=== PATIENT | female | born 1960 | race African-American/Black ===

== ENCOUNTER 2025-07-09 13:39 | Outpatient (AMB) | payer MEDICARE, MEDICAID, SELFPAY ==
[2025-07-09 13:41] VITALS: PULSE 74; TEMP 36.6; BMI 52.5
--- NOTE | 2025-07-09 13:41 | A.PHYSOV ---
Vital Signs 07/09/25 13:41 Height 5 ft 1 in Weight 278 lb BMI 52.5 Pulse 74 Temp 97.8 F Intake Visit Reasons: Lumbar Interlaminar Epidural Injection L5-S1 Intake Note: Patient is a 64 year old female in office today for a L5-s1 epidural steroid injections Interactive Media Specialist Required: No Allergies No Known Allergies Allergy (Verified 07/09/25 13:43) PFSH Medical History Lumbar radiculitis Surgical History H/O tubal ligation (Unknown) History of cholecystectomy (Unknown) History of Social History Household Members: Family and Children Alcohol intake: current Alcohol intake frequency: holidays/special occasions only Patient Tobacco Use Status: Former Tobacco user Use of substances other than those prescribed or required for medical reasons: No Current occupational status: retired Physical Exam Vital Signs: Last Vital Signs Temp 97.8 F 07/09/25 13:41 Pulse 74 07/09/25 13:41 BMI result Body Mass Index 52.5 Office Procedures Procedure Details: Procedure performed: L5-S1 lumbar epidural steroid injection Preop diagnosis: Lumbar radiculitis Postop diagnosis: The same Anesthesia: Local After informed consent was obtained patient was brought into the procedure room and placed in the prone position on the procedure table. Skin over the lumbar sacral area was prepped and draped in usual sterile manner. L5-S1 interlaminar space was visualized utilizing fluoroscopy. After skin was anesthetized with 1% lidocaine solution, 6 in 20 gauge Toughy needle was introduced percutaneously and advanced toward the epidural space at the indicated level. Loss of resistance technique was utilized. Needle placement was verified utilizing 3 cc of Omnipaque contrast solution. Excellent epidural spread was visualized without evidence of vascular uptake. Total volume of 8 cc containing 2 cc of 1% lidocaine, 40 mg of triamcinolone and normal saline solution were injected after negative aspiration for blood and cerebrospinal fluid. Radiation exposure was documented in the chart. Lumbar Interlaminar Epidural 62544- use with FL Gd order: Lumbar Interlaminar Epidural Steroid Injection 90260 Procedure code (CPT) selection complete Office Meds Kenalog 40 mg/mL suspension for injection Performing Provider: Stanley Chu DO Performing [facility] Administered by: Stanley Chu DO on 07/09/25 13:59 Dose Route Admin Location Dispensed Lot Number Expiration Date [facility] Benefit Director 40 mg epidural 1 mL [address]-9 [employer] Total Dispensed Waste 1 mL 0 % lidocaine (PF) 10 mg/mL (1 %) injection solution Performing Provider: Stanley Chu DO Performing Location: [facility] Administered by: Stanley Chu DO on 07/09/25 13:59 Dose Route Admin Location Dispensed Lot Number Expiration Date [facility] Benefit Director 50 mg epidural 5 mL 64991-831-23 [facility] PH[facility] Total Dispensed Waste 5 mL 0 % Omnipaque 300 300 mg iodine/mL intravenous solution Performing Provider: Stanley Chu DO [facility] Administered by: Stanley Chu DO on 07/09/25 13:59 Dose Route Admin Location Dispensed Lot Number Expiration Date [facility] Benefit Director 3 mL epidural 10 mL [id number] [employer] Total Dispensed Waste 10 mL 70 % Assessment & Plan Assessment & Plan (1) Lumbar radiculitis: Code(s): M54.16 - Radiculopathy, lumbar region Category: Medical Plan: Procedure Plan Procedure Orders: Orders FL Gd L Spine Interlaminar Inj Today M54.16 - Radiculopathy, lumbar region AMB Lumbar Interlaminar Epidural Steroid Injection Today M54.16 - Radiculopathy, lumbar region Coding Level of Care Code Procedure Only Diagnoses Lumbar radiculitis M54.16 CPT Codes Lumbar Interlaminar Epidural Steroid I - 08248 - Lumbar Interlaminar Epidural: Lumbar Interlaminar Epidural Steroid Injection 74964 ([id number])
--- OUTSIDE RECORDS SUMMARY | 2025-07-09 17:53 | XMS_ITS | Clinical Summary ---
Author Organization [facility] Address [address] [place] [address] Phone Care Team Providers Care Systems Lead Name Role Phone Kirti García MD Primary Care Provider [phone] Allergies No known active allergies Medications oxymetazoline (AFRIN) 0.05 % nasal spray Administer 2 sprays into each nostril 2 (two) times a day for 3 days. 30 mL 5 Active gabapentin (NEURONTIN) 100 mg capsule Take 2 capsules (200 mg total) by mouth 3 (three) times a day. 4 Active ProAir HFA 90 mcg/actuation inhaler Inhale 2 puffs by mouth every 6 (six) hours if needed for shortness of breath. 9 Active omeprazole (PriLOSEC) [address] capsule Take 1 capsule (20 mg total) by mouth 1 (one) time each day. 5 Active fluticasone HFA (FLOVENT HFA) 110 mcg/actuation inhaler Inhale 2 puffs by mouth 2 (two) times a day. 4 Active Arnuity Ellipta 100 mcg/actuation blister with device inhaler Inhale 1 puff by mouth 1 (one) time each day. 5 Active levothyroxine (SYNTHROID, LEVOTHROID) 200 mcg tablet TAKE 1 TABLET BY MOUTH EVERY MORNING ON AN EMPTY STOMACH ONCE A DAY 5 Active traMADoL (ULTRAM) 50 mg tablet TAKE 1 TABLET BY MOUTH 4 TIMES A DAY FOR 7 DAYS 4 Active albuterol 2.5 mg /3 mL (0.083 %) nebulizer solution Take 3 mL (2.5 mg total) by nebulization every 6 (six) hours if needed for wheezing. 75 mL 5 Active polyethylene glycol (Golytely) 236-22.74-6.74 -5.86 gram solution Take 4L by mouth once for one dose. May substitue any PEG. Starting at 2PM the day before your procedure drink 1 8oz glasses at your own pace until you complete half of the gallon. Finish 2nd half of the gallon at 8PM. 4000 mL 5 Active bisacodyL (DULCOLAX) 5 mg EC tablet Take 2 tablets by mouth right before beginning bowel prep. See instructions provided by the office 2 tablet 5 Active phentermine 15 mg capsule 1 capsule (15 mg total) 1 (one) time each day at the same time. Max Daily Amount: 15 mg 5 Active guaiFENesin (MUCINEX) 600 mg 12 hr tablet Take 1 tablet (600 mg total) by mouth 2 (two) times a day. Do not crush, chew, or split. 60 each 11 5 05/25/20 26 Active Active Problems No known active problems Encounters Date Type Department Care Team Description 05/25/2025 4:40 PM EDT - 05/25/2025 11:[address] [facility] Emergency [address] [place] [phone] Manish Rubi MD Zaidi, Mansoor Anwer, MD COPD exacerbation (CMS/[facility] V24, CMS/[facility] V28) (Primary Dx); Shortness of breath Discharge Disposition: Home or Self Care 04/27/2025 2:51 PM EDT - 04/27/2025 4:[address] [facility] Emergency [address] [place] [phone] Anthony Henry MD COVID-19 (Primary Dx); Chest pain, unspecified type; Shortness of breath Discharge Disposition: Home or Self Care 04/21/2025 12:15 PM EDT Anesthesia Event [facility] Endoscopy [address] [place] [phone] Nabeel Rocha MD Mounsey, Sarah, CRNA 04/21/2025 11:54 AM EDT - 04/21/2025 11:59 PM EDT Hospital Encounter [facility] Endoscopy [address] [place] [phone] Lawrence Snowden MD Saliga, Jesse L, MD Mounsey, Sarah, CRNA Colon cancer screening Discharge Disposition: Home or Self Care from Last 3 Months Surgical History Surgery Date Site/Laterality Comments COLONOSCOPY Medical History Medical History Date Comments Asthma COPD (chronic obstructive pulmonary disease) (CM S/HCC V24, CMS/HCC V28) Hypothyroid Social History Tobacco Use Types Packs/Day Years Used Date Smoking Tobacco: Former Cigarettes Smokeless Tobacco: Never Tobacco Cessation:Counseling Given: Not Answered Interpersonal Safety Answer Date Record ed Physical Abuse Unrecognized value 04/21/2025 Verbal Abuse Unrecognized value 04/21/2025 Comments No Sex and Gender Information Value Date Recorded Sex Assigned at Female 02/01/2025 11:57 AM EDT Legal Sex Female 11:38 PM EST Gender Identity Female 02/01/2025 11:57 AM EDT Sexual Orientation Straight 02/01/2025 11 :57 AM EDT Obstetrics History Para Term AB IAB SAB Ectopic Multiple Livin g Live Births 3 Last Filed Vital Signs Vital Sign Reading Time Taken Comments Blood Pressure 114/56 05/25/2025 10:51 PM EDT Pulse 60 05/25/2025 10:51 PM EDT Temperature 36.7 C (98.1 F) 05/25/2025 10:51 PM EDT Respiratory Rate 18 05/25/2025 10:51 PM EDT Oxygen Saturation 100% 05/25/2025 10:51 PM EDT Inhaled Oxygen Concentration - - Weight 127 kg (280 lb) 05/25/2025 12:58 PM EDT Height 154.9 cm (5' 1 ) 05/25/2025 12:58 PM EDT Body Mass Index 52.91 05/25/2025 12:58 PM EDT Plan of Treatment Upcoming Encounters Date Type Department Care Team (Late st Contact Info) Description 09/17/2025 10:[address] [facility] Bone Density [address] [place] [phone] 03/04/2026 10:00 AM EDT Appointment [facility] [address] [place] [phone] Health Maintenance Due Date Last Done Comments DTaP,Tdap,and Td Vaccines (1 - Tdap) 11/18/1979 Cervical Cancer Screening: Pap Smear 1981 RSV Immunization Adult Patients (1 - Risk 50-74 years 1-dose series) 2010 Zoster Vaccines (1 of 2) 2010 Pneumococcal Vaccine: 50+ Years (2 of 2 - PPSV23, PCV20, or PCV21) 03/13/2022 01/16/2022 Cholesterol Screening (Lipid Panel) 07/08/2022 HIV Screening 07/08/2022 Hepatitis C Screening 07/08/2022 Medicare Annual Wellness Visit 07/08/2022 Social Influencers of Health Screening 07/08/2022 Depression Screening 08/05/2024 COVID-19 Vaccine ( season) 2025 12/14/2020, 11/16/2020 Influenza Vaccine (#1) 2025 Breast Cancer Screening 03/03/2027 03/03/20 25, 02/24/2024, 01/29/2023, Additional history exists Colorectal Cancer Screening: Colonoscopy 04/21/2035 04/21/2025 HIB Vaccines Aged Out No longer eligi ble based on patient's age to complete this topic HPV Vaccines Aged Out No longer eligi ble based on patient's age to complete this topic Hepatitis A Vaccines Aged Out No long er eligible based on patient's age to complete this topic Hepatitis B Vaccines Aged Out No long er eligible based on patient's age to complete this topic IPV Vaccines Aged Out No longer eligi ble based on patient's age to complete this topic MMR Vaccines Aged Out No longer eligi ble based on patient's age to complete this topic Meningococcal ACWY Vaccine Aged Out N o longer eligible based on patient's age to complete this topic Meningococcal B Vaccine Aged Out No l onger eligible based on patient's age to complete this topic RSV Immunization Patients Under 20 months Aged Out No longer eligible based on patient's age to complete this topic Varicella Vaccines Aged Out No longer eligible based on patient's age to complete this topic Procedures Procedure Name Priority Date/Time Associated Diagnosis Comments ECG ANNOTATED 05/26/2025 CT ANGIO CHEST WO AND/OR W CONTRAST STAT 05/25/2025 8:48 PM EDT Shortness of breath VENOUS BLOOD GAS STAT 05/25/2025 7:58 PM EDT XR CHEST 2 VIEWS STAT 05/25/2025 6:51 PM EDT TROPONIN I HIGH SENSITIVITY Timed 05/25/2025 6:40 PM EDT D-DIMER STAT Add-on 05/25/2025 1:49 PM EDT ACTIVATED PARTIAL THROMBOPLASTIN TIME STAT 05/25/2025 1:49 PM EDT PROTHROMBIN TIME WITH INR STAT 05/25/2025 1:49 PM EDT CBC WITH AUTO DIFFERENTIAL STAT 05/25/2025 1:49 PM EDT B-TYPE NATRIURETIC PEPTIDE STAT 05/25/2025 1:49 PM EDT MAGNESIUM STAT 05/25/2025 1:49 PM EDT LIPASE STAT 05/25/2025 1:49 PM EDT COMPREHENSIVE METABOLIC PANEL STAT 05/25/2025 1:49 PM EDT CBC AND DIFFERENTIAL STAT 05/25/2025 1:49 PM EDT TROPONIN I HIGH SENSITIVITY Timed 05/25/2025 1:49 PM EDT ECG ANNOTATED 04/28/2025 XR CHEST 2 VIEWS STAT 04/27/2025 1:39 PM EDT [id number]-[id number], RSV, FLU A AND B QUALITATIVE RT-PCR, INTERNAL LAB STAT 04/27/2025 1:06 PM EDT ECG 12-LEAD STAT 04/27/2025 1:04 PM EDT COLONOSCOPY Routine 04/21/2025 12:30 PM EDT Colon cancer screening MG MAMMO DIGITAL SCREENING W GINO BILAT Routine 03/03/2025 9:44 AM EDT Encounter for screening mammogram for malignant neoplasm of breast from Last 3 Months or Most Recently Relevant to Health Maintenance Results * ECG-Annotated (05/26/2025) Only the most recent of2 resultswithin the time period is included. us Provider Onbase MD ECG ORDERABLES Final Result * CT Angio Chest wo and/or w Contrast (05/25/2025 8:48 PM EDT) Anatomical Region Laterality Modality Body Computed Tomogra phy 05/25/2025 9:34 PM EDT Impressions 05/25/2025 9:34 PM EDT 1. No pulmonary embolus. No acute intrathoracic findings. This document has been electronically signed by: Tal Gorman MD on 05/25/2025 21:34:01 Narrative 05/25/2025 9:34 PM EDT INDICATION: concern PE CT angiography chest with contrast. 3D Postprocessing. Comparison: None provided Findings: The heart size is normal. RV/LV ratio is normal. Unremarkable thoracic aorta and great vessels. No aneurysm. No pulmonary artery filling defects. The visualized thyroid and mediastinum are unremarkable. No consolidation or effusion. Prior cholecystectomy. The bones are intact. Procedure Note Tal Gorman - 05/25/2025 INDICATION: concern PE CT angiography chest with contrast. 3D Postprocessing. Comparison: None provided Findings: The heart size is normal. RV/LV ratio is normal. Unremarkable thoracic aorta and great vessels. No aneurysm. No pulmonary artery filling defects. The visualized thyroid and mediastinum are unremarkable. No consolidation or effusion. Prior cholecystectomy. The bones are intact. IMPRESSION: 1. No pulmonary embolus. No acute intrathoracic findings. This document has been electronically signed by: Tal Gorman MD on 05/25/2025 21:34:01 us Manish Rubi MD IMG CT PROCEDURES Final Result * (ABNORMAL) Venous blood gas (05/25/2025 7:58 PM EDT) pH, Ward 7.31(L) 7.32 - 7.42 pH 05/25/2025 8:06 PM EDT [facility] pCO2, Ward 56(H) 41 - 51 mmHg 05/25/2025 8:06 PM EDT [facility] pO2, Ward 25 25 - 40 mmHg 05/25/2025 8:06 PM EDT [facility] HCO3, Venous 24.1 22.0 - 26.0 mmol/L 05/25/2025 8:06 PM EDT [facility] O2 Sat, Ward 35.0 % 05/25/2025 8:06 PM EDT [facility] Base Excess, Ward 0.9 -2.0 - 2.0 mmol/L 05/25/2025 8:06 PM EDT [facility] Blood Venous blood specimen / Unknown Venipuncture / Unknown 05/25/2025 7:58 PM EDT 05/25/2025 8:03 PM EDT us Manish Rubi MD LAB BLOOD ORDERABLES Final Resul t [facility] [address] [place] [address], [place] [phone] * XR Chest 2 Views (05/25/2025 6:51 PM EDT) Only the most recent of2 resultswithin the time period is included. Anatomical Region Laterality Modality Body Radiographic Thuy ging 05/26/2025 10:0 0 AM EDT Impressions 05/26/2025 10:00 AM EDT FINDINGS/IMPRESSION: Lungs are clear. No pleural effusion or pneumothorax. Cardiac silhouette is normal in size. Degenerative changes seen throughout the bones. Cholecystectomy clips. -------- FINAL REPORT -------- Dictated By: JEET AUGUST Dictated Date: 05/26/2025 10:00 ET Assigned Physician: JEET AUGUST Reviewed and Electronically Signed By: JEET AUGUST Signed Date: 05/26/2025 10:00 ET Workstation ID: [id number] Transcribed By: Self Edit Transcribed Date: 05/26/2025 10:00 ET Narrative 05/26/2025 10:00 AM EDT XR CHEST 2 VIEWS INDICATION: Chest pain TECHNIQUE: XR CHEST 2 VIEWS COMPARISON: 04/27/2025 Procedure Note Jeet August MD - 05/26/2025 XR CHEST 2 VIEWS INDICATION: Chest pain TECHNIQUE: XR CHEST 2 VIEWS COMPARISON: 04/27/2025 IMPRESSION: FINDINGS/IMPRESSION: Lungs are clear. No pleural effusion orpneumothorax. Cardiac silhouette is normal in size. Degenerative changesseen throughout the bones. Cholecystectomy clips. -------- FINAL REPORT -------- Dictated By: JEET AUGUST Dictated Date: 05/26/2025 10:00 ET Assigned Physician: JEET AUGUST Reviewed and Electronically Signed By: JEET AUGUST Signed Date: 05/26/2025 10:00 ET Workstation ID: [id number] Transcribed By: Self Edit Transcribed Date: 05/26/2025 10:00 ET Manish Rubi MD IMG XR PROCEDURES Final Result * Troponin I high sensitivity (05/25/2025 6:40 PM EDT) Only the most recent of2 resultswithin the time period is included. High Sensitivity Troponin I 6 <=54 ng/L LAB CHEMISTRY METHOD 05/25/2025 7:22 PM EDT [facility] Blood Venous blood specimen / Unknown Venipuncture / Unknown 05/25/2025 6:40 PM EDT 05/25/2025 6:43 PM EDT Narrative [facility] - 05/25/2025 7:22 PM EDT High levels of biotin in samples may falsely decrease hsTroponin values. Use caution when interpreting hsTroponin results in patients taking biotin who exhibit renal impairment (eGFR <60) or in patients taking more than 20 mg/day of biotin. us Manish Rubi MD LAB BLOOD ORDERABLES Final Resul t [facility] [address] [place] [address], * (ABNORMAL) CBC auto differential (05/25/2025 1:49 PM EDT) WBC 4.7(L) 4.8 - 10.8 K/mcL LAB HEMETOLOGY METHOD 05/25/2025 2:02 PM EDT [facility] RBC 4.00 3.80 - 4.80 M/mcL LAB HEMETOLOGY METHOD 05/25/2025 2:02 PM EDT [facility] Hemoglobin 10.6(L) 11.5 - 16.0 g/dL LAB HEMETOLOGY METHOD 05/25/2025 2:[facility] Hematocrit 33.0(L) 35.0 - 47.0 % LAB HEMETOLOGY METHOD 05/25/2025 2:02 PM EDT [facility] MCV 83.1 79.0 - 98.0 FL LAB HEMETOLOGY METHOD 05/25/2025 2:02 PM [facility] MCH 26.7(L) 27.0 - 32.0 pcg LAB HEMETOLOGY METHOD 05/25/2025 2:02 PM [facility] MCHC 32.1 32.0 - 37.0 g/dL LAB HEMETOLOGY METHOD 05/25/2025 2:02 PM [facility] RDW 15.3(H) 11.0 - 15.0 % LAB HEMETOLOGY METHOD 05/25/2025 2:02 PM [facility] Platelets 278 130 - 400 K/mcL LAB HEMETOLOGY METHOD 05/25/2025 2:02 PM [facility] MPV 9.3 7.0 - 11.0 FL LAB HEMETOLOGY METHOD 05/25/2025 2:02 PM [facility] NRBC 0.0 <1.0 % LAB HEMETOLOGY METHOD 05/25/2025 2:02 PM [facility] NRBC Absolute 0.00 <0.10 K/mcL LAB HEMETOLOGY METHOD 05/25/2025 2:02 PM [facility] Neutrophils Relative 54.5 % LAB HEMETOLOGY METHOD 05/25/2025 2:02 PM [facility] Lymphocytes Relative 32.3 % LAB HEMETOLOGY METHOD 05/25/2025 2:02 PM [facility] Monocytes Relative 8.1 % LAB HEMETOLOGY METHOD 05/25/2025 2:02 PM [facility] Eosinophils Relative 4.5 % LAB HEMETOLOGY METHOD 05/25/2025 2:02 PM [facility] Basophils Relative 0.4 % LAB HEMETOLOGY METHOD 05/25/2025 2:02 PM [facility] Immature Granulocytes Relative 0.2 % LAB HEMETOLOGY METHOD 05/25/2025 2:02 PM [facility] Neutrophils Absolute 2.57 1.50 - 7.00 K/mcL LAB HEMETOLOGY METHOD 05/25/2025 2:02 PM [facility] Lymphocytes Absolute 1.52 1.00 - 5.00 K/mcL LAB HEMETOLOGY METHOD 05/25/2025 2:02 PM EDT [facility] Monocytes Absolute 0.38 0.20 - 1.00 K/[facility] LAB HEMETOLOGY METHOD 05/25/2025 2:02 PM EDT [facility] Eosinophils Absolute 0.21 0.00 - 0.50 K/[facility] LAB HEMETOLOGY METHOD 05/25/2025 2:02 PM EDT [facility] Basophils Absolute 0.02 0.00 - 0.20 K/[facility] LAB HEMETOLOGY METHOD 05/25/2025 2:02 PM EDT [facility] Immature Granulocytes Absolute 0.01 0.00 - 0.03 K/[facility] LAB HEMETOLOGY METHOD 05/25/2025 2:02 PM EDT [facility] Blood Venous blood specimen / Unknown Venipuncture / Unknown 05/25/2025 1:49 PM EDT 05/25/2025 1:53 PM EDT us Manish Rubi MD LAB BLOOD ORDERABLES Final Resul t Performing Organization Address City/[facility]/ZIP Co de Phone Number [facility] [address] [place] [address], [place] [phone] * APTT (05/25/2025 1:49 PM EDT) aPTT 30.1 24.1 - 39.3 sec LAB COAGULATION METHOD 05/25/2025 2:22 PM EDT [facility] Blood Venous blood specimen / Unknown Venipuncture / Unknown 05/25/2025 1:49 PM EDT 05/25/2025 1:53 PM EDT us Manish Rubi MD LAB BLOOD ORDERABLES Final Resul t Performing Organization Address City/[facility]/ZIP Co de Phone Number [facility] [address] [place] [address], [place] [phone] * Protime-INR (05/25/2025 1:49 PM EDT) [facility] Protime 11.6 10.6 - 13.9 sec LAB COAGULATION METHOD 05/25/2025 2:22 PM EDT [facility] INR 0.9 LAB COAGULATION METHOD 05/25/2025 2:22 PM EDT [facility] Blood Venous blood specimen / Unknown Venipuncture / Unknown 05/25/2025 1:49 PM EDT 05/25/2025 1:53 PM EDT us Manish Rubi MD LAB BLOOD ORDERABLES Final Resul t Performing Organization Address [facility]/ZIP Co de Phone Number [facility] [address] [place] [address], [place] [phone] * (ABNORMAL) D-dimer, quantitative (05/25/2025 1:49 PM EDT) [facility] D-Dimer, Quant (D-DU) 310(H) <=230 ng/mL DDU LAB COAGULATION METHOD 05/25/2025 7:26 PM EDT [facility] Blood Venous blood specimen / Unknown Venipuncture / Unknown 05/25/2025 1:49 PM EDT 05/25/2025 1:53 PM EDT Narrative [facility] - 05/25/2025 7:26 PM EDT D-Dimer <230 ng/mL (D-Dimer units) is the threshold for exclusion of DVT/PE. D-Dimer may be elevated in: Critically ill, severely infected, trauma patients, DIC, acute CVA, acute ID, unstable angina, AF, old age, , and smoking. D-Dimer may be decreased with: Initiation of heparin therapy and oral anticoagulants. us Manish Rubi MD LAB BLOOD ORDERABLES Final Resul t Performing Organization Address City/[facility]/ZIP Co de Phone Number [facility] [address] [place] [address], [place] [phone] * B-type natriuretic peptide (05/25/2025 1:49 PM EDT) Pathologist [facility] BNP 59 <=100 pcg/mL LAB CHEMISTRY METHOD 05/25/2025 2:42 PM EDT [facility] Blood Venous blood specimen / Unknown Venipuncture / Unknown 05/25/2025 1:49 PM EDT 05/25/2025 1:53 PM EDT us Manish Rubi MD LAB BLOOD ORDERABLES Final Resul t Performing Organization Address City/[facility]/ZIP Co de Phone Number [facility] [address] [place] [address], [place] [phone] * Magnesium (05/25/2025 1:49 PM EDT) [facility] Magnesium 2.2 1.9 - 2.6 mg/dL LAB CHEMISTRY METHOD 05/25/2025 2:30 PM EDT [facility] Blood Venous blood specimen / Unknown Venipuncture / Unknown 05/25/2025 1:49 PM EDT 05/25/2025 1:53 PM EDT us Manish Rubi MD LAB BLOOD ORDERABLES Final Resul t [facility] [address] [place] [address], [place] [phone] * Lipase (05/25/2025 1:49 PM EDT) Pathologist [facility] Lipase 21 13 - 75 unit/L LAB CHEMISTRY METHOD 05/25/2025 2:30 PM EDT [facility] Blood Venous blood specimen / Unknown Venipuncture / Unknown 05/25/2025 1:49 PM EDT 05/25/2025 1:53 PM EDT us Manish Rubi MD LAB BLOOD ORDERABLES Final Resul t [facility] [address] [place] [address], * (ABNORMAL) Comprehensive metabolic panel (05/25/2025 1:49 PM EDT) Sodium 141 133 - 145 mmol/L LAB CHEMISTRY METHOD 05/25/2025 2:44 PM EDT [facility] Potassium 3.9 3.5 - 5.5 mmol/L LAB CHEMISTRY METHOD 05/25/2025 2:44 PM EDT [facility] Chloride 108 96 - 110 mmol/L LAB CHEMISTRY METHOD 05/25/2025 2:44 PM [facility] CO2 29 21 - 32 mmol/L LAB CHEMISTRY METHOD 05/25/2025 2:44 [facility] Anion Gap 4 3 - 11 LAB CHEMISTRY METHOD 05/25/2025 2:44 PM [facility] Glucose 103(H) 70 - 100 mg/dL LAB CHEMISTRY METHOD 05/25/2025 2:44 PM [facility] BUN 15 5 - 25 mg/dL LAB CHEMISTRY METHOD 05/25/2025 2:44 PM [facility] Creatinine 1.00 0.50 - 1.10 mg/dL LAB CHEMISTRY METHOD 05/25/2025 2:44 PM EDT [facility] eGFR 63 >=60 mL/min/1. 73m2 LAB CHEMISTRY METHOD 05/25/2025 2:44 PM [facility] Comment:Calculation based on the Chronic Kidney Disease Epidemiology Collaboration (CKD-EPI) equation refit without adjustment for race. BUN/Creatinine Ratio 15.0 LAB CHEMISTRY METHOD 05/25/2025 2:44 PM [facility] Calcium 9.0 8.5 - 10.5 mg/dL LAB CHEMISTRY METHOD 05/25/2025 2:44 PM EDT [facility] AST (SGOT) 19 10 - 42 unit/L LAB CHEMISTRY METHOD 05/25/2025 2:44 PM EDT [facility] ALT (SGPT) 13 10 - 60 unit/L LAB CHEMISTRY METHOD 05/25/2025 2:44 PM EDT [facility] Alkaline Phosphatase 105 42 - 121 unit/L LAB CHEMISTRY METHOD 05/25/2025 2:44 PM EDT [facility] Total Protein 6.8 6.0 - 8.0 g/dL LAB CHEMISTRY METHOD 05/25/2025 2:44 PM EDT [facility] Albumin 3.4 3.2 - 5.0 g/dL LAB CHEMISTRY METHOD 05/25/2025 2:44 PM EDT [facility] Total Bilirubin 0.4 0.0 - 1.4 mg/dL LAB CHEMISTRY METHOD 05/25/2025 2:44 PM EDT [facility] Blood Venous blood specimen / Unknown Venipuncture / Unknown 05/25/2025 1:49 PM EDT 05/25/2025 1:53 PM EDT us Manish Rubi MD LAB BLOOD ORDERABLES Final Resul t [facility] [address] [place] [address], * (ABNORMAL) [id number], RSV, Influenza A and B qualitative RT-PCR (04/27/2025 1:06 PM EDT) Influenza A PCR Not Detected Not Detected LAB MICROBIOLOGY METHOD 04/27/2025 4:00 PM EDT [facility] Influenza B PCR Not Detected Not Detected LAB MICROBIOLOGY METHOD 04/27/2025 4:00 PM EDT [facility] RSV PCR Not Detected Not Detected LAB MICROBIOLOGY METHOD 04/27/2025 4:00 PM EDT [facility] SARS COV-2 Detected(A) Not Detected LAB MICROBIOLOGY METHOD 04/27/2025 4:00 PM EDT [facility] Swab Both anterior nares / Unknown Non-blood Collection / Unknown 04/27/2025 1:06 PM EDT 04/27/2025 3:12 PM EDT Narrative [facility] - 04/27/2025 4:00 PM EDT Disclaimer: Testing was performed using the [employer] GeneXpert Xpress SARS-CoV-2 _Flu_RSV PLUS PCR assay. The manner in which this information is used to guide patient care is the responsibility of the healthcare provider. Results should be correlated with the clinical history, epidemiological data, and other data available to the clinician evaluating the patient. Negative results do not preclude infection. This test has been authorized by the FDA under an Emergency Use Authorization (EUA). This test is only authorized for the duration of time the declaration that circumstances exist justifying the authorization of the emergency use of in vitro diagnostic tests for detection of SARS-CoV-2 virus and/or diagnosis of COVID-19 infection under section 564 (b) (1) of the Act, 21 U.S.C 360bbb-3 (b) (1), unless the authorization is terminated or revoked sooner. Reference Range: Not Detected Fact sheet for Healthcare providers can be found at https://www.fda.gov/media/022614/download. Fact sheet for Healthcare patients can be found at https://www.fda.gov/media/763120/download. Anthony Henry MD LAB MICROBIOLOGY - GENERAL ORDE SALTY Final Result [facility] [address] [place] [address], * ECG 12 lead (04/27/2025 1:04 PM EDT) [facility] Signature Ventricular Rate ECG 65 BPM GEMUSE Atrial Rate 65 BPM GEMUSE P-R Interval 154 ms GEMUSE QRS Duration 90 ms GEMUSE Q-T Interval 420 ms GEMUSE QTc 436 ms GEMUSE P Wave Antigo 70 degrees GEMUSE R Antigo 8 degrees GEMUSE T Antigo 47 degrees GEMUSE ECG Interpretation Normal sinus rhythm Normal ECG When compared with ECG of 14-SEP-2024 09:01, No significant change was found Confirmed by MARIAMA ROSENBAUM ([id number]) on 04/29/2025 10:32:08 AM GEMUSE 04/27/2025 1:04 PM EDT 04/29/2025 10:32 AM EDT us Anthony Henry MD ECG ORDERABLES Final Result GEMUSE * COLONOSCOPY Anesthesia - MAC; [facility] ENDOSCOPY (04/21/2025 12:30 PM EDT) Anatomical Region Laterality Modality Endoscopy 04/21/2025 12:1 0 PM EDT Impressions 04/21/2025 12:33 PM EDT - The entire examined colon is normal on direct and retroflexion views. - No specimens collected. Recommendation: - Discharge patient to home. - Resume previous diet. - Continue present medications. - Repeat colonoscopy in 10 years for surveillance. - Return to GI office PRN. Narrative 04/21/2025 12:[address] [facility] GI Patient Name: Mala Bonilla Procedure Date: 04/21/2025 12:10 PM Date of : 1960 Age: 64 Room: ROOM 16 Gender: Female Note Status: Finalized Attending MD: Lawrence Snowden MD, Procedure Date No Time: 04/21/2025 Procedure: Colonoscopy Indications: Screening for colorectal malignant neoplasm Providers: Lawrence Snowden MD Referring MD: Lawrence Snowden MD Medicines: Monitored Anesthesia Care Complications: No immediate complications. Estimated Blood Loss: Estimated blood loss: none. Procedure: Pre-Anesthesia Assessment: - ASA Grade Assessment: III - A patient with severe systemic disease. - After reviewing the risks and benefits, the patient was deemed in satisfactory condition to undergo the procedure. After I obtained informed consent, the scope was passed under direct vision. Throughout the procedure, the patient's blood pressure, pulse, and oxygen saturations were monitored continuously.The Olympus Colonoscope was introduced through the anus and advanced to the cecum, identified by appendiceal orifice and ileocecal valve. The colonoscopy was performed without difficulty. The patient tolerated the procedure well. The quality of the bowel preparation was good. Findings: The entire examined colon appeared normal on direct and retroflexion views. Procedure Code(s): --- Professional --- G0121, Colorectal cancer screening; colonoscopy on individual not meeting criteria for high risk Diagnosis Code(s): --- Professional --- Z12.11, Encounter for screening for malignant neoplasm of colon CPT copyright 2020 [employer]. All rights reserved. The codes documented in this report are preliminary and upon teacher's aide review may be revised to meet current compliance requirements. Lawrence Snowden MD 04/21/2025 12:32:53 PM This report has been signed electronically.Lawrence Snowden MD Number of Addenda: 0 Note Initiated On: 04/21/2025 12:10 PM Scope In: Scope Out: Endoscopy Department at [facility] - [address] [place] [phone] Procedure Note Lawrence Snowden MD - 04/21/2025 [facility] GI Patient Name: Mala Bonilla Procedure Date: 04/21/2025 12:10 PM Date of : 1960 Age: 64 Room: ROOM 16 Gender: Female Note Status: Finalized Attending MD: Lawrence Snowden MD, Procedure Date No Time: 04/21/2025 Procedure: Colonoscopy Indications: Screening for colorectal malignant neoplasm Providers: Lawrence Snowden MD Referring MD: Lawrence Snowden MD Medicines: Monitored Anesthesia Care Complications: No immediate complications. Estimated Blood Loss: Estimated blood loss: none. Procedure: Pre-Anesthesia Assessment: - ASA Grade Assessment: III - A patient with severe systemic disease. - After reviewing the risks and benefits, thepatient was deemed in satisfactory condition to undergo the procedure. After I obtained informed consent, the scope was passed under direct vision. Throughout theprocedure, the patient's blood pressure, pulse, and oxygen saturations were monitored continuously.The Olympus Colonoscope was introduced through the anus and advanced to the cecum, identified by appendiceal orifice and ileocecal valve. The colonoscopy was performed without difficulty. The patient tolerated the procedure well. The quality of the bowel preparation was good. Findings: The entire examined colon appeared normal on direct and retroflexion views. Procedure Code(s): --- Professional --- G0121, Colorectal cancer screening; colonoscopy on individual not meeting criteria for high risk Diagnosis Code(s): --- Professional --- Z12.11, Encounter for screening for malignantneoplasm of colon CPT copyright 2020 [employer]. All rights reserved. The codes documented in this report are preliminary and upon teacher's aide reviewmay be revised to meet current compliance requirements. Lawrence Snowden MD 04/21/2025 12:32:53 PM This report has been signed electronically.Lawrence Snowden MD Number of Addenda: 0 Note Initiated On: 04/21/2025 12:10 PM Scope In: Scope Out: Endoscopy Department at [facility] - [address] [place] [id number] IMPRESSION: - The entire examined colon is normal on direct and retroflexion views. - No specimens collected. Recommendation: - Discharge patient to home. - Resume previous diet. - Continue present medications. - Repeat colonoscopy in 10 years forsurveillance. - Return to GI office PRN. Lawrence Snowden MD GI~PROCEDURE ORDERABLES Final Result * MG Mammo Digital Screening w Gino bilat (03/03/2025 9:44 AM EDT) Anatomical Region Laterality Modality Breast Bilateral Mammography 03/03/2025 5:08 PM EDT Impressions 03/03/2025 5:17 PM EDT No mammographic evidence of malignancy. No suspicious interval change. A negative mammogram in the presence of a clinically suspicious palpable abnormality does not preclude the possibility of malignancy or alter the indications for biopsy. ASSESSMENT: BI-RADS 1: NEGATIVE RECOMMENDATION(S): 1: Routine screening mammogram BILATERAL in 1 year. [facility] location: [facility] [address], [address] -------- FINAL REPORT -------- Dictated By: Nikolas Franklin Dictated Date: 03/03/2025 17:08 ET Assigned Physician: Nikolas Franklin Reviewed and Electronically Signed By: Nikolas Franklin Signed Date: 03/03/2025 17:17 ET Workstation ID: [id number] Transcribed By: Self Edit Transcribed Date: 03/03/2025 17:08 ET Narrative 03/03/2025 5:17 PM EDT EXAM: SCREENING MAMMOGRAPHY, BILATERAL HISTORY: SCREENING. No additional history. COMPARISON: 02/22/24, 01/29/23, 01/24/22 TECHNIQUE: Synthesized CC and MLO projections of each breast. Tomosynthesis of each breast in the CC and MLO projections. ADDITIONAL IMAGING: Craniocaudal view of each breast exaggerated toward the axilla using Tomosynthesis. Technologist indicates difficult to achieve optimal positioning due to limited mobility Computer-aided detection was employed with the [employer] Certified AI 3-D. TISSUE DENSITY: There are scattered areas of fibroglandular density. (BI-RADS category B) FINDINGS: RIGHT BREAST: No suspicious mass. No suspicious calcification. No distortion. No additional suspicious right breast findings LEFT BREAST: No suspicious mass. No suspicious calcification. No distortion. No additional suspicious left breast findings Procedure Note Nikolas Franklin MD - 03/03/2025 EXAM: SCREENING MAMMOGRAPHY, BILATERAL HISTORY: SCREENING. No additional history. COMPARISON: 02/22/24, 01/29/23, 01/24/22 TECHNIQUE: Synthesized CC and MLO projections of each breast.Tomosynthesis of each breast in the CC and MLO projections. ADDITIONAL IMAGING: Craniocaudal view of each breast exaggerated towardthe axilla using Tomosynthesis. Technologist indicates difficult to achieve optimal positioning due tolimited mobility Computer-aided detection was employed with the [employer] Certified AI 3-D. TISSUE DENSITY: There are scattered areas of fibroglandular density.(BI-RADS category B) FINDINGS: RIGHT BREAST: No suspicious mass. No suspicious calcification. No distortion. Noadditional suspicious right breast findings LEFT BREAST: No suspicious mass. No suspicious calcification. No distortion. Noadditional suspicious left breast findings IMPRESSION: No mammographic evidence of malignancy. No suspicious interval change. A negative mammogram in the presence of a clinically suspicious palpableabnormality does not preclude the possibility of malignancy or alter theindications for biopsy. ASSESSMENT: BI-RADS 1: NEGATIVE RECOMMENDATION(S): 1: Routine screening mammogram BILATERAL in 1 year. [facility] [address], [address] -------- FINAL REPORT -------- Dictated By: Nikolas Franklin Dictated Date: 03/03/2025 17:08 ET Assigned Physician: Nikolas Franklin Reviewed and Electronically Signed By: Nikolas Franklin Signed Date: 03/03/2025 17:17 ET Workstation ID: [id number] Transcribed By: Self Edit Transcribed Date: 03/03/2025 17:08 ET Kirti García MD IMG BI PROCEDURES Final Res ult from Last 3 Months or Most Recently Relevant to Health Maintenance Insurance MEDICA[place] MEDICARE Member Subscriber Plan / Payer (Ef fective 2025-Present) Name:MALA BONILLA Member ID:[id number] Relation to Subscriber:Self Name:Mala Bonilla Subscriber ID:[id number] Payer ID:Not on file Group ID:Not on file Type:Medicare Address: [facility] [address] [phone] Care Teams Systems Lead Relationship Specialty Start Date End Date Kirti García MD [address] [place] [address] PCP - General Internal Medicine 08/30/24
--- OUTSIDE RECORDS SUMMARY | 2025-07-09 17:53 | XMS_ITS | Data Portability ---
Author Organization [place] [facility] Address [address] [place] [phone] Care Team Providers Care Equities Trader Name Role Phone ARIELLA ROSS Primary Care Provider Assessment Encounter Date Assessment Date Assessment LastModified by Organization Details LastModified Time 10/17/2018 10/17/2018 Overview/History : Pt is a 57 yo F with PMH sig for Asthma and hypothyroidism. Pt states she has had a cough for the last 3 days with increased fatigue. 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 She reports feeling nauseous but denies any v/d. She states the cough is non-productive and that the coughing bouts trigger SOB and chest pain, she denies CP other than after forceful coughing episodes. Pt reports some mild body aches. Denies any known fevers but states she has been sweating at night. Exam: Pt is A/Ox3, non-toxic appearing, VSS, HRR, resp reg and unlabored on RA, lungs pos for coarse rhonchi bilat throughout. Pt given neb tx with good effect, rhonchi improved. HEENT exam pos for dull TMs and boggy erythemic turbinates. rapid flu neg DDx considered, but not limited to: asthma exacerbation: possible given hx of asthma, sx and lung sounds bronchitis: possible given sx, hx of asthma, former smoker, lung sounds pna: possible but less likely given above reasons but pt also has normal VS PE: unlikely given sob triggered by coughing, lung sounds, normal VS ACS: unlikely given VSS, CP reproducable with cough. Work up/Results: cxr: pending Plan/Discussion: Pt start given neb tx and prednisone on scene with good effect. Prednisone and pro air inhaler sent into pharm for sx management as pt's rescue inhaler is . CXR ordered to r/o PNA. Patients PCP contacted and updated on patient status. Patient verbalized understanding of discharge instructions and when to follow up with PCP/911/ED as needed. Patient in agreement with current plan and treatment. Time On Scene with Patient: 00:41:21 camila Not available 10/17/2018 15:57:18 Plan of Treatment Reminders Order Date Submit Date Provider Last Modified By Organization Details Last Modified Time Details Appointments None recorded. Lab rapid flu (A+B) 2018 019 [facility], [address] [place] [address], [phone], 9 13:24:51 Referral None recorded. Procedures None recorded. Surgeries None recorded. Imaging XR, chest, 2 view - [facility] Dx: Cough 2018 019 [facility] (Central Scheduling Radiology), [address] [place], [address], 9 10:16:55 Medication Orders ipratropi um 0.5 mg-albute rol 3 mg (2.5 mg base)/3 mL nebulizat ion soln 2018 019 formerly [facility], [address] [place], [address], 9 13:24:51 prednison e 10 mg tablet 2018 019 [facility], [address] [place], [address], 9 13:24:51 ProAir HFA 90 mcg/actua tion aerosol inhaler 2018 019 [facility], [address] [place], [address], 9 13:24:53 prednison e 20 mg tablet [address] [facility], [address] [place], [address], 9 13:24:53 Patient TargetsNo targets recorded. Patient Instructions Encounter Date Encounter Id Patient Instructions Last Modified By Organization Details Last Modified Time 10/17/2018 [id number] Acute Bronchitis Instructions BASIC INFORMATION Acute bronchitis is swelling and irritation in the air passages of your lungs. This irritation may cause you to cough or have other breathing problems. Acute bronchitis often starts because of another viral illness, such as a cold or the flu. The illness spreads from your nose and throat to your windpipe and airways. Bronchitis is often called a chest cold. Acute bronchitis lasts about 2 weeks and is usually not a serious illness. Most cases of bronchitis DO NOT require antibiotics. INSTRUCTIONS Medicines: Ibuprofen or acetaminophen: These medicines help lower a fever and treat aches. Refer to the bottles for proper dosing based on age and weight. Use as needed. Do not take either of these medicines for more than 3 days in a row. Prolonged use of Ibuprofen can hurt your kidney and stomach. Prolonged use of Tylenol can injure your liver. Cough medicine: Qtij-zgc-imkcrxh (OTC) medicine helps loosen mucus in your lungs and make it easier to cough up. OTC cough medicine should NOT be used in children under age 3. Inhalers: You may need an inhaler to help you breathe easier and cough less. Inhalers help to relax the airways An inhaler gives medicine in a mist form so that you can breathe it into your lungs. If you were given an inhaler, take 2 puffs, four times per day for 2 days. After that, just use as needed for increased coughing, wheezing or tightness in chest. Steroid medicine: You may have been given prednisone or another steroid medication which helps open your air passages so you can breathe easier. Antibiotics: In most cases, antibiotics are not necessary for bronchitis. However, if your provider did prescribe these for you, please complete the entire course. You should also ask your pharmacist for a good tsvz-tgy-zzjxbdf probiotic to take while you are on the antibiotic to help prevent antibiotic induced diarrhea. A good probiotic should have two species of live, active cultures. How to use an inhaler: 1) Shake the inhaler well to make sure you get the correct amount of medicine per puff. Remove the cover from your inhaler's mouthpiece. 2) Exhale as much air from your lungs as you can. Put the mouthpiece in your mouth, past your front teeth and rest it on the top of your tongue. Do not block the mouthpiece opening with your tongue. 3) Breathe in through your mouth at a slow and steady rate. As you do this, press the inhaler to release the puff of medicine. When your lungs are full, hold your breath for 10 seconds. Then breathe out slowly through puckered lips or through your nose. 4) If you need to take more puffs, wait at least 1 minute between each puff. 5) Using a spacer / air chamber ensures that you get the maximum amount of medicine from the inhaler. 6) Rinse your mouth with water after you use the inhaler. This may keep you from getting a mouth infection or irritation. 7) Follow the instructions that come with your inhaler to clean it. Self Care: 1) Do not smoke or allow others to smoke around you. Please call the [employer]uit Line at to help in smoking cessation. Avoid chemicals, fumes, and dust. 2) Stay well hydrated 3) Seek care immediately if you: - develop a fever - develop a rash - become increasingly short of breath or you do not begin to improve 3-5 days (it may take 10 days for complete improvement) - cough up blood - have chest pain unrelated to coughing 4) Make appointment to follow up with you doctor within one week or sooner if directed by your [facility] provider. If you develop any new or worsening symptoms and need after hours care, please go to nearest ER and/or call 911. If you have additional concerns or develop a change in your condition between 8am-10pm, please call [facility] at [phone] to help navigate your care. camila Not available 10/17/2018 13:24:35 Reason for Referral None Reported. Results Created Date Observation Date Name Description Value Unit Range Abnormal Flag Note LastModifiedBy Organization Detail LastModifiedTime 10/18/19 19 10/17/2018 rapid flu (A+B) Flu A negati ve Not Available [facility] [address], [place], [address], 10/17/2018 12:58:12 10/18/19 19 10/17/2018 rapid flu (A+B) Flu B negati ve Not Available [facility] [address], [place], [address], 10/17/2018 12:58:12 10/22/19 19 XR, chest , 2 view No observ ation record ed. [facility] (Central Scheduling Radiology) [address] [place], [address], 10/21/2018 11:42:20 Result Notes None recorded. Problems Name Problem SNOMED Code Status Onset Date Resolution Date Notes Provider Name and Address Organization Details Recorded Time Asthma 789745151 Active 019 [facility] [address] [place], [address] , [place] - [facility] 9 12:57:01 Problem Notes None recorded. Procedures Surgical History Date Name Laterality Status Provider Name and Address Organization Details Recorded Time 9 Nebulizer treatment - DH completed [facility] NP [address] [place], [address], [place] [facility] 10/17/2018 13:24:46 Imaging Results None recorded. Procedure Notes None recorded. Medical Equipment None Reported. Allergies No known drug allergies Medications Name Sig Start Date Stop Date Status Note LastModified by Organization Details LastModified Time prednisone 10 mg tablet 40 mg PO administere d on scene. Time administere d:1320 2018 active Not Available Not Available Not Avai lable ipratropium 0.5 mg-albuterol 3 mg (2.5 mg base)/3 mL nebulization soln Albuterol 2.5 mg & Atrovent 0.5 mg solution nebulized on scene. Time administere d:1310 2018 active Not Available Not Available Not Avai lable prednisone 20 mg tablet Take 2 tablets every day by oral route for 3 days. 2018 active Not Available Not Available Not Avai lable Levoxyl 175 mcg tablet Take 1 tablet every day by oral route. active Not Available Not Available No t Available omeprazole active Not Available Not Av ailable Not Available ProAir HFA 90 mcg/actuatio n aerosol inhaler Inhale 2 puffs every 4 hours by inhalation route as needed for 30 days. 2018 active Not Available Not Available Not Avai lable Vitals Date Recorded Body temperature Heart rate Oxygen saturation Respiratory rate Systolic And Diastolic Provider Name and Address Organization Details Last Updated DateTime 9 98.1 [degF] 80 /min 98 % 24 /min 102/60 mm[Hg] Not Available [facility] 9 13:14:03 Social History Question Answer Notes LastModified by [employer] Details LastModified Time Tobacco Smoking Status Former Smoker [facility] NP [address], [place], [address], [place] - [facility] 10/17/2018 12:57:21 Do You Have An Advance Directive? Yes Information not available 10/17/2018 What Is Your Code Status? Full Code Information not available 10/17/2018 Drugs Abused None Information not available 10/17/2018 How Many Days In The Past Year Have You Had A Heavy Drinking Consumption (4+ Female, 5+ Male)? 0 Information not available 10/17/2018 Marital Status Single Informatio n not available 10/17/2018 What Was The Date Of Your Most Recent Tobacco Screening? 10/17/2018 Information not available 02/26/2019 Has Tobacco Cessation Counseling Been Provided? No Information not available 10/17/2018 Sex: Unknown Functional Status None recorded. Mental Status None recorded. Family History Relationship Description Onset Age of this Age Resolved Age Notes LastModified by Organization Details LastModified Time Father Diabetes mellitus [email or web address] Not available 10/17 12:57:15 Medical History No medical history recorded. Gynecological HistoryNo gynecological history recorded. Obstetrics History GPAL:G 0 P 0 0 0 0 Past Encounters Encounter ID Performer Location Encounter Start Date Encounter Closed Date Diagnosis/Indication Diagnosis SNOMED-CT Code Diagnosis ICD10 Code Diagnosis IMO Codes Diagnosis Note [id number] CHEMO POWERS NP [facility] [address] [place] [address] 10/17/2018 12:53:58 10/21/2018 14:17:26 Acute asthma 476867009 J45.901 Health Concerns Section Related Observation LastModified by Organization Detai ls LastModified Time None Recorded Concern Status LastModified by Organization Details LastModified Time None Recorded Advance Directives Directive Y: Payers Insurance Date Sequence Insurance Name Policy Number Policy Jean Baptiste Covered Member ID Jean Baptiste Member ID Guarantor Name 10/17/2018 1 *SELF PAY* Mala Lucio [id number] Mala Lucio 10/17/2018 1 [place] Lucio [id number] Mala Lucio 10/21/2018 1 [place] [facility] Mala Lucio [id number] Mala Lucio 10/21/[address] [facility] (MEDICAID HMO) [id number] Mala Lucio [id number] Mala Lucio 10/21/2018 1 [facility] PLAN (MEDICAID HMO) Mala Lucio [id number] Mala Lucio Notes Date Note Type Note Provider Name and Address Organization Details Recorded Time 10/17/2018 text/html Sx started about 2 days ago with a cough and chest pain with coughing, cough is non-productive , no known fever but having night time sweats, pt did not get a flu shot this year. 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 Denies headache, earache or lightheadednes s. Reports nausea but no v/d. CHEMO POWERS NP [facility] [place], [address], [place] - [facility] 10/17/2018 15:57:22 OBGyn Episode No OBEpisode recorded.
== END 2025-07-09 14:19 | disposition home or self-care (01) ==
LOC: HO.HPHYS 13:40
PROVIDERS: PCP Physician Assistant Medical; Visit Provider Physical Medicine & Rehabilitation
DX: M54.16 Radiculopathy, lumbar region (principal)
CPT/HCPCS: 62323

== ENCOUNTER 2025-07-09 13:39 | Outpatient (REF) | payer MEDICARE, MEDICAID, SELFPAY | END 2025-07-09 13:40 | disposition home or self-care (01) | LOC: HO.HPHYSR 13:39 | PROVIDERS: PCP Physician Assistant Medical; Visit Provider Physical Medicine & Rehabilitation | DX: M54.16 Radiculopathy, lumbar region (principal) | CPT/HCPCS: 62323; J2003; J3301; Q9967 ==